=== PATIENT | male | born 1995 | race Caucasian/White ===

== ENCOUNTER 2023-06-21 14:39 | Outpatient (CLI) | payer BC, SELFPAY | END 2023-06-21 14:40 | disposition home or self-care (01) | PROVIDERS: PCP Family Medicine; Visit Provider Family Medicine | DX: R53.83 Other fatigue (principal) | CPT/HCPCS: 80053; 82306; 84443 ==

== ENCOUNTER 2023-07-05 12:46 | Outpatient (CLI) | payer BC, SELFPAY | END 2023-07-05 12:47 | disposition home or self-care (01) | LOC: RAD 12:47 | PROVIDERS: PCP Family Medicine; Visit Provider Family Medicine | DX: R07.9 Chest pain, unspecified (principal); R94.31 Abnormal electrocardiogram [ECG] [EKG] | CPT/HCPCS: 93306 ==